=== PATIENT | female | born 1945 | race Caucasian/White ===

== ENCOUNTER → 2017-01-30 | Outpatient (CLI) | payer MEDICARE, OTHER ==
[2017-01-30 12:19] LABS: BASO # 0.1 10*3/uL (0.0-0.1); BASO % 0.8 % (0.0-1.0); EOS # 0.4 10*3/uL (0.0-0.4); EOS % 3.3 % (1.0-4.0); HEMATOCRIT 43.2 % (37.0-47.0); IG # 0.1 10*3/uL (0.0-0.1); LYMPH # 2.2 10*3/uL (1.3-4.4); LYMPH % 19.5 % (27.0-41.0); MEAN CELL VOLUME 96.4 fl (81.0-99.0); MEAN CORPUSCULAR HGB 31.3 pg (27.0-31.0); MEAN CORPUSCULAR HGB CONC 32.4 g/dl (33.0-37.0); MEAN PLATELET VOLUME 10.7 fl (9.6-12.3); MONO # 0.7 10*3/uL (0.1-1.0); MONO % 6.5 % (3.0-9.0); NEUT # 7.9 10*3/uL (2.3-7.9); NEUT % 69.5 % (47.0-73.0); PLATELET COUNT AUTOMATED 249 10*3/uL (130-400); RED BLOOD COUNT 4.48 10*6/uL (4.10-5.10); WHITE BLOOD COUNT 11.4 10*3/uL (4.8-10.8)
[2017-01-30 12:40] LABS: BILIRUBIN NEGATIVE (NEGATIVE); BLOOD NEGATIVE (NEGATIVE); CLARITY CLEAR (CLEAR); COLOR YELLOW (YELLOW); GLUCOSE NEGATIVE (NEGATIVE); KETONE NEGATIVE (NEGATIVE); LEUKO ESTERASE NEGATIVE (NEGATIVE); NITRITE NEGATIVE (NEGATIVE); PROTEIN NEGATIVE (NEGATIVE); SPECIFIC GRAVITY <= 1.005 (1.005-1.030); UROBILINOGEN 0.2 E.U./dl (0.2-1.0)
[2017-01-30 12:46] LABS: EPITHELIAL CELLS 0-2; URINE REFLEX COMMENT NO (NO)
[2017-01-30 12:50] LABS: URINE TP/CRE RATIO 0.3 (<0.21)
[2017-01-30 12:54] LABS: ALBUMIN 3.1 gm/dl (3.1-4.5); BILIRUBIN, TOTAL 0.5 mg/dl (0.2-1.0); MAGNESIUM 1.9 mg/dL (1.5-2.1); PHOSPHOROUS 2.7 mg/dL (2.5-4.9); POTASSIUM 4.7 mmol/L (3.5-5.1); TOTAL PROTEIN 7.5 gm/dL (6.4-8.2)
[2017-01-30 12:59] LABS: THYROID STIM HORMONE (HS) 2.53 uIU/ml (0.358-4.75)
[2017-01-30 13:22] LABS: FERRITIN 120.2 ng/mL (10.0-291.0); VITAMIN D, 25-HYDROXY 48.5 ng/mL (30-100)
[2017-01-30 14:58] LABS: HEMOGLOBIN A1c 6.7 % (4.8-5.6)
== END | disposition home or self-care (01) ==
LOC: LAB 11:44
PROVIDERS: Internal Medicine Nephrology
DX: N18.3 Chronic kidney disease, stage 3 (moderate) (principal); N25.81 Secondary hyperparathyroidism of renal origin; E55.9 Vitamin D deficiency, unspecified; R53.83 Other fatigue; R79.89 Other specified abnormal findings of blood chemistry; Z79.899 Other long term (current) drug therapy

== ENCOUNTER → 2017-06-07 | Outpatient (CLI) | payer MEDICARE, OTHER ==
[2017-06-07 09:26] LABS: BASO # 0.1 10*3/uL (0.0-0.1); BASO % 0.9 % (0.0-1.0); EOS # 0.4 10*3/uL (0.0-0.4); EOS % 2.9 % (1.0-4.0); HEMATOCRIT 42.8 % (37.0-47.0); HEMOGLOBIN 13.9 g/dl (12.0-16.0); LYMPH # 2.4 10*3/uL (1.3-4.4); LYMPH % 17.4 % (27.0-41.0); MEAN CORPUSCULAR HGB 31.2 pg (27.0-31.0); MEAN CORPUSCULAR HGB CONC 32.5 g/dl (33.0-37.0); MEAN PLATELET VOLUME 11.5 fl (9.6-12.3); MONO # 0.9 10*3/uL (0.1-1.0); MONO % 6.5 % (3.0-9.0); NEUT % 71.9 % (47.0-73.0); PLATELET COUNT AUTOMATED 243 10*3/uL (130-400); RED BLOOD COUNT 4.46 10*6/uL (4.10-5.10); RED CELL DISTRI WIDTH 14.7 % (0-14.5)
[2017-06-07 09:54] LABS: ALBUMIN 3.5 gm/dl (3.1-4.5); CREATININE 1.53 mg/dL (0.55-1.02); POTASSIUM 4.5 mmol/L (3.5-5.1); TOTAL PROTEIN 7.9 gm/dL (6.4-8.2)
[2017-06-07 09:59] LABS: THYROID STIM HORMONE (HS) 2.97 uIU/ml (0.358-4.75)
[2017-06-07 11:53] LABS: FERRITIN 72.6 ng/mL (10.0-291.0); VITAMIN D, 25-HYDROXY 37.3 ng/mL (30-100)
== END | disposition home or self-care (01) ==
LOC: LAB 07:28 → MAMMO 07:40
PROVIDERS: Family Medicine
DX: Z12.31 Encounter for screening mammogram for malignant neoplasm of breast (principal); R53.83 Other fatigue; R79.89 Other specified abnormal findings of blood chemistry; E55.9 Vitamin D deficiency, unspecified

== ENCOUNTER → 2017-07-31 | Outpatient (CLI) | payer MEDICARE, OTHER ==
[2017-07-31 15:19] LABS: BASO # 0.1 10*3/uL (0.0-0.1); BASO % 0.8 % (0.0-1.0); BILIRUBIN NEGATIVE (NEGATIVE); BLOOD NEGATIVE (NEGATIVE); CLARITY CLEAR (CLEAR); COLOR STRAW (YELLOW); EOS # 0.3 10*3/uL (0.0-0.4); EOS % 2.7 % (1.0-4.0); GLUCOSE NEGATIVE (NEGATIVE); HEMATOCRIT 42.7 % (37.0-47.0); HEMOGLOBIN 13.8 g/dl (12.0-16.0); KETONE NEGATIVE (NEGATIVE); LEUKO ESTERASE NEGATIVE (NEGATIVE); LYMPH # 2.5 10*3/uL (1.3-4.4); LYMPH % 20.4 % (27.0-41.0); MEAN CELL VOLUME 92.8 fl (81.0-99.0); MEAN CORPUSCULAR HGB CONC 32.3 g/dl (33.0-37.0); MEAN PLATELET VOLUME 10.8 fl (9.6-12.3); MONO # 0.9 10*3/uL (0.1-1.0); MONO % 7.2 % (3.0-9.0); NEUT # 8.3 10*3/uL (2.3-7.9); NEUT % 68.4 % (47.0-73.0); NITRITE NEGATIVE (NEGATIVE); PH 5.5 (5.0-9.0); PLATELET COUNT AUTOMATED 274 10*3/uL (130-400); RED CELL DISTRI WIDTH 14.8 % (0-14.5); SPECIFIC GRAVITY <= 1.005 (1.005-1.030); UROBILINOGEN 0.2 E.U./dl (0.2-1.0); WHITE BLOOD COUNT 12.1 10*3/uL (4.8-10.8)
[2017-07-31 15:28] LABS: URINE CREATININE RANDOM 20.7 mg/dL
[2017-07-31 15:33] LABS: BACTERIA TRACE; EPITHELIAL CELLS 15-20; WBC 0-2 wbc/hpf (0-5); YEAST TRACE
[2017-07-31 15:46] LABS: ALBUMIN 3.6 gm/dl (3.1-4.5); CREATININE 2.05 mg/dL (0.55-1.02); PHOSPHOROUS 2.1 mg/dL (2.5-4.9); POTASSIUM 4.1 mmol/L (3.5-5.1)
[2017-07-31 16:07] LABS: PTH INTACT 57.6 pg/mL (14.0-72.0); VITAMIN D, 25-HYDROXY 32.6 ng/mL (30-100)
== END | disposition home or self-care (01) ==
LOC: LAB 14:54
PROVIDERS: Internal Medicine Nephrology
DX: N18.3 Chronic kidney disease, stage 3 (moderate) (principal); N25.81 Secondary hyperparathyroidism of renal origin; E55.9 Vitamin D deficiency, unspecified

== ENCOUNTER 2017-12-29 12:41 | Inpatient (IN) | payer MEDICARE, OTHER ==
[~2017-12-29] VITALS: Ht 160 cm; Wt 117.2 kg
[2017-12-29] VITALS (10 sets, daily range): BP systolic 118–135; BP diastolic 47–118
--- NOTE | ~2017-12-29 | PR ---
[place], [place] PROGRESS NOTE NAME: YOSELIN RASHID [facility] #: [id number] UNIT #: [id number] ROOM: 511 DOCTOR: GEETHA GALDAMEZ MD,SHIVAM BIRTHDATE: [birth year] DOS: 01/04/2018 SUBJECTIVE: The patient has been noted comfortable at this time without any acute distress. The patient has not been noted symptoms of chest pain or cough. Shortness of breath has been improving progressively. The patient denies any symptoms of sputum expectoration. She has not been noted edema of the lower extremities. Denies symptoms of nausea, vomiting. She denies symptoms of headache, nausea, vomiting, diarrhea, hematemesis, melena, hematochezia, edema of the lower extremity. Remaining systems were reviewed. They were noted all negative. OBJECTIVE: VITAL SIGNS: For the patient which were recorded showed the temperature noted normal, respiratory rate of the patient recorded as 20, heart rate of 82. The blood pressure 154/76. HEENT: Examination shows head was atraumatic. Eyes, nonicterus. NECK: Supple. CARDIOVASCULAR: S1, S2 audible. LUNGS: Crackles are still noted in the right lower lung. Mild decreased breath sounds. There was no wheezing. ABDOMEN: Soft and obese. EXTREMITIES: Noted without any acute edema. VISIBLE SKIN: No lesions or rashes. MUSCULOSKELETAL: No deformities. CENTRAL NERVOUS SYSTEM: Intact. LABORATORY DATA: CBC today: WBC count was elevated at 20,000, hemoglobin 9.9, hematocrit were normal. The BMP this morning BUN 54, creatinine 1.89, carbon dioxide 34. The chest x-ray of the patient that was done this morning was reviewed and shows right lower lobe pneumonia was noted with consolidation. IMPRESSION: The patient with ongoing acute pneumonia, at this time, which has been treated with the antibiotics. The cultures of the bronchial washing noted negative. Previous isolation of Staphylococcus hominis, most likely bacteremia from skin contamination. PLAN OF MANAGEMENT: 1. Clinically, the patient has been showing progressive improvement and resolution of the current acute respiratory symptoms including pneumonia. The oxygen requirement noted 3 liter nasal cannula this morning. Wheezing has improved markedly. The patient noted the leukocytosis on the CBC that has been gradually resolving. Slow resolution of acute pneumonia. The patient currently treated with antibiotics. 2. Resolving acute exacerbation of chronic obstructive pulmonary disease. 3. Chronic obesity. 4. Continuation of the bronchodilator with oxygen supplementation and antibiotics. Monitor respiratory status closely. No additional changes in treatment will be necessary. Monitor chest x-ray closely. Other supportive therapy, plan of management. Potential discharge home in the next 24-48 hours, would be expected. [place], [place] PROGRESS NOTE NAME: YOSELIN RASHID UNIT #: [id number] ROOM: [facility] DOCTOR: SHIVAM KELLOGG MD BIRTHDATE: [birth year] SHIVAM INIGUEZ MD CM:PNKUMAR [id number] SHIVAM GALDAMEZ MD 03/06/18 0739 interface
--- NOTE | ~2017-12-29 | PR ---
[place], [place] PROGRESS NOTE NAME: YOSELIN RASHID [facility] #: [id number] UNIT #: [id number] ROOM: 511 DOCTOR: GEETHA GALDAMEZ MD,SHIVAM BIRTHDATE: [birth year] DOS: 01/02/2018 SUBJECTIVE: She has bronchoscopy done yesterday. The patient noted with significant reduction of the cough after that including shortness of breath. Denies symptoms of chest pain or hemoptysis. Wheezing has been improving gradually. There were symptoms of chest pain. Denies any abdominal pain, nausea, vomiting, dysuria. The remaining systems were reviewed. They were noted all negative. PHYSICAL EXAMINATION: VITAL SIGNS: Normal temperature, respiratory rate 16, heart rate 81, blood pressure 154/65, 111/58. Pulse oxygen saturation of the patient on 3 liters nasal cannula 98% saturation. HEENT: Examination shows head was atraumatic. Eyes nonicterus. NECK: Supple. CARDIOVASCULAR: S1, S2 audible. LUNGS: Absence of any wheezing on todays' examination, crackles in the right lower lung. ABDOMEN: Soft and obese. EXTREMITIES: Without acute edema. VISIBLE SKIN: No lesions or rashes. CENTRAL NERVOUS SYSTEM: Cranial nerves 2-12 intact. LABORATORY DATA: CBC today, WBC count 25.3, hemoglobin 10.6, platelet count were normal, 93% segmented neutrophil. Renal function panel: BUN 55, creatinine 2.01, and glucose 103. Sodium 133. The Gram stain of bronchial washings, few epithelial cells, moderate white blood cell, few budding yeast for the patient with preliminary noted moderate growth of yeast. The patient's culture final results pending. IMPRESSION: 1. The patient with acute pneumonia, bronchogram for this patient was noted small pleural fluid, status post bronchoscopy. Acute exacerbation of chronic obstructive pulmonary disease, severe cough. The patient noted better after the removal of the mucous impaction in major airways.2. 3. Bacteremia, possible contamination. 4. Chronic nicotine abuse. 5. Obesity. 6. Clinical suspicion of obstructive sleep apnea disorder. PLAN OF TREATMENT: Continue current dose of Solu-Medrol, which was decreased to 40 mg daily. Continuation of bronchodilators, oxygen supplementation, antibiotics. Chest x-ray of the patient that was done this morning was noted with partial improvement aeration of the lung. Leukocytosis still noted in the CBC, which will be monitored. Vancomycin could be discontinued. The leukocytosis has been gradually improving. Supportive therapy, plan of management, other care plan as previously. Usual care and other treatments. Titrate oxygen supplementation to maintain pulse oxygen 92% or greater. [place], [place] PROGRESS NOTE NAME: YOSELIN RASHID UNIT #: [id number] ROOM: [facility] DOCTOR: SHIVAM KELLOGG MD BIRTHDATE: [birth year] SHIVAM INIGUEZ MD CM:PNTRANS [id number] SHIVAM GALDAMEZ MD 03/06/18 0736 interface
--- NOTE | ~2017-12-29 | CON ---
[place], [place] REPORT OF CONSULTATION NAME: YOSELIN RASHID UNIT #: [id number] ROOM: 511 DOCTOR: GEETHA GALDAMEZ MDSHIVAM BIRTHDATE: [birth year] DOS: 12/30/2017 PULMONARY CONSULTATION, EVALUATION, AND MANAGEMENT CONSULTATION REQUESTED BY THE: Hospitalist services. REASON FOR CONSULTATION: For assessment of symptoms of shortness of breath and others. HISTORY OF PRESENT ILLNESS: This is a 72-year-old white female patient who has been admitted to the hospital under the care of the hospitalist services. The patient came into the hospital. The patient has been noted with significant increase of shortness of breath, occurred gradually in the past 3 days associated with coughing. The coughing has been noted severe and nonproductive and currently has some sputum expectoration described as purulent. She was also noted with wheezing along with symptoms, which not occuring worst and then occurring at rest. She denies any symptoms of chest pain, but complains of tightness in the chest. She denies symptoms of hemoptysis. PAST MEDICAL HISTORY: Known with: 1. Chronic tobacco use. 2. Coronary artery disease. 3. Chronic kidney disease, stage 3 to stage 4. 4. Type 2 diabetes mellitus. 5. Essential hypertension. 6. Hyperlipidemia. 7. Severe obesity. 8. Vitamin D deficiency. PAST SURGICAL HISTORY: 1. Bilateral carotid endarterectomy. 2. Coronary artery bypass grafting. 3. Cardiac catheterization. HOME MEDICATIONS: Listed as use of aspirin, Lipitor, vitamin D, clonidine, Plavix, fenofibrate, Lasix, metoprolol tartrate, and potassium chloride. DRUG ALLERGIES: As noted with no known drug allergies. SOCIAL HISTORY: She was , has 2 children. The patient has been noted using tobacco since teenager, pack of cigarettes per day, currently smoking a pack every 3 days. Denies history of alcohol use or illicit drug use. FAMILY HISTORY: The patient's father at age of [id number] from complication of lung cancer. Mother at age of [id number] from complication related to peripheral vascular disease. REVIEW OF SYSTEMS: CONSTITUTIONAL SYMPTOMS: Fatigue and tiredness noted without any chills, but not sure about the fever. [place], [place] REPORT OF CONSULTATION NAME: YOSELIN RASHID UNIT #: [id number] ROOM: 511 DOCTOR: GEETHA GALDAMEZ MD,SHIVAM BIRTHDATE: [birth year] EYES: Denies any burning, redness, or tenderness. EARS, NOSE, AND THROAT SYMPTOMS: No sore throat, hoarseness, otalgia, postnasal drainage, or epistaxis. CARDIOVASCULAR SYSTEM: Denies any angina pain, edema, or pain of the lower extremities. GASTROINTESTINAL SYMPTOMS: Denies dysphagia, nausea, vomiting, diarrhea, abdominal pain, hematemesis, melena, or hematochezia. SKIN: Denies abnormal lesions or rashes. CENTRAL NERVOUS SYSTEM: The patient was noted without any headache, diplopia, or syncopal episodes. The remaining systems were reviewed and they were noted all negative. PHYSICAL EXAMINATION: GENERAL: This is a 72-year-old white female patient, who has been currently noted resting. Height of the patient noted as 5 feet 3 inches, weight of 256 pounds, and on 4 liters nasal cannula BMI noted as 45. VITAL SIGNS: The vital signs of the patient otherwise recorded shows the temperature noted 102.7 degree Fahrenheit, normal temperature; respiratory rate ranges between 18-40, the heart rate of 94-108, and blood pressure 120/71-126/50. Pulse oxygen saturation noted on room air is 88%, on 3 liters nasal cannula is 96%, with a BiPAP is 96%-97% saturation, on 40% Optiflow mask is 93% and currently on 4 liter nasal cannula as 95%. HEENT: Examination shows head was atraumatic. Eyes nonicterus. NECK: Supple. Chronic obesity. CARDIOVASCULAR: S1, S2 is audible. LUNGS: Diffuse expiratory wheezing in the lungs was noted bilaterally. ABDOMEN: Soft and obese. It was nontender. EXTREMITIES: The patient is noted without any acute edema. Chronic obesity findings. CENTRAL NERVOUS SYSTEM: Cranial nerves 2-12 intact. MUSCULOSKELETAL: Without any deformity. VISIBLE SKIN: No lesions or rashes. LABORATORY DATA: The arterial blood gas of the patient on 3 liters, pH of 7.39, pCO2 of 39, and pO2 is 74. Lactic acid was noted 1.6. CBC yesterday on admission. WBC count 22.2, hemoglobin 11.1, hematocrit 33.1, and platelet count 234,000. CMP of the patient, BUN 51, creatinine 2.75, glucose 179, and sodium was 131. Arterial blood gas of the patient that was repeated again, pH of 7.35, pCO2 of 40, and pO2 of 75 on 35% of oxygen with the BiPAP. The troponin noted mildly elevated, the max troponin is 0.066. PT and PTT of the patient this morning was noted as normal. The CBC of the patient this morning, WBC count 22.5, hemoglobin 10.7, hematocrit 32.6, platelet count is 221,000, and 98% segmented neutrophils. CMP of the patient this morning, BUN 59, creatinine 3.01, glucose 159, sodium 130, and chloride of 97. Albumin 1.9. AST 161. Blood culture of the patient in the Emergency Room noted gram-positive cocci in cluster in the one order. The ultrasound of lower extremities was done this morning does not show evidence of pulmonary embolism. RADIOLOGY DATA: Review of the radiology data, chest x-ray of the patient that was done on 12/27/2017 shows area of acute infiltration and consolidation in the [place], [place] REPORT OF CONSULTATION NAME: YOSELIN RASHID UNIT #: [id number] ROOM: [facility] DOCTOR: GEETHA GALDAMEZ MD,[facility] BIRTHDATE: [birth year] right lower lobe. The CT scan of the chest that was done without contrast personally reviewed shows a very large infiltration, which was occupying in the right lower lobe with large air bronchogram was noted with associated very small pleural fluid. There was no evidence of possibility of cavitation cannot be completely excluded in the medial subsegment of the right lower lobe couple of areas. Mild mediastinal lymphadenopathy was noted appeared to be most likely non-pathological. IMPRESSION: 1. The patient who has been currently admitted to the hospital with systemic inflammatory response syndrome with acute hypoxic respiratory failure and acute extensive pneumonia in the right lobe, questionable necrosis and gram-positive cocci bacteremia. The differential diagnosis would be considered acute Staphylococcus aureus infection with possible consideration of the Staphylococcus aureus versus methicillin-resistant Staphylococcus aureus. 2. The patient with morbid obesity with clinical suspicion of obstructive sleep apnea disorder. 3. Acute and chronic kidney disease was related secondary to the intravascular volume depletion and/or acute tubular necrosis. 4. History of long-term tobacco use. 5. New onset of wheezing with consideration for the acute exacerbation of chronic obstructive pulmonary disease versus bronchial asthma as well. 6. Respiratory distress, which was noted yesterday related to the current acute infectious etiology. PLAN OF MANAGEMENT: The patient has been currently getting Solu-Medrol 60 mg q.8 hours that will be continued. Bronchodilator will be continued every 4 hours. The patient is already getting the vancomycin that would be continued for current infection. Beside that, the patient will be started on the intravenous Zosyn until all the culture results will become available. Order the sputum for Gram stain and culture. Obtain the urine for Legionella antigen as well. Monitoring the current findings of the current pneumonia, which appeared to be necrotizing as well with the followup of chest x-ray very closely. If necessary CT scan of the chest might be considered. If the patient not able to produce enough sputum, consider fiberoptic bronchoscopy with direct sampling of that area. Nicotine replacement patches to overcome nicotine withdrawal. Continue other supportive therapy, plan of management, and care plan. Additional treatment changes to be done for this patient with all other treatment therapy, plan of management, and care. Usual treatment. All other supportive plan of therapy as well. Previous treatment plan of changing to be continued as well. The pleural fluid is noted very small at this time, would not require any intervention. Monitor kidney function closely as well. Consider consultation, Nephrology services not already done so. Usual care. Supportive therapy, plan of management, and care plan. Thanks for allowing me to participate in the care of this patient. [place], [place] REPORT OF CONSULTATION NAME: YOSELIN RASHID UNIT #: [id number] ROOM: 511 DOCTOR: SHIVAM KELLOGG MD BIRTHDATE: [birth year] SHIVAM INIGUEZ MD CM:CONSTR:REPORT OF CONSULTATION 1358 03/06/18 0731 interface
--- NOTE | ~2017-12-29 | PROC NOTE ---
[place], [place] PROCEDURE NOTE [id number] #: [id number] ROOM: 511 DOCTOR: GEETHA GALDAMEZ MD,SHIVAM BIRTHDATE: [birth year] DOS: 01/01/2018 BRONCHOSCOPY PREOPERATIVE DIAGNOSES: The patient with acute large pneumonia involving the right upper lobe with excessive severe cough. POSTOPERATIVE DIAGNOSES: Infection of the mucus plug noted in endobronchial tree bilateral and finding of acute pneumonia noted in the right lower lobe. There were no endobronchial obstructions seen with any tumor. PROCEDURE DESCRIPTION: Informed consent obtained from the patient. The patient was brought to the OR and placed in supine position. Conscious sedation was administered by Anesthesia Department. After achieving appropriate sedation, airway introduced into the mouth. Bronchoscope advanced from the airway into laryngeal area. Epiglottis and vocal cords were seen. Bronchoscope was advanced to the vocal cords and tracheal lumen, which were moving symmetrically with the movements. Bronchoscope was further advanced to the trachea, which were noted with very thick mucoid secretion in the tracheal lumen with purulent secretion mixture. The secretions were suctioned out to the esther level. The patient noted with multiple thick plugs of the mucus in the endobronchial tree bilateral subsegments and the right lower lobe was noted with endobronchial secretion mixed with some purulent secretions with mucous impaction as well. There were no endobronchial obstructive lesions. All secretions suctioned out with the help of normal saline wash without any difficulty and sent for culture. The procedure was tolerated by the patient without any difficulty. Postoperative findings were discussed with the patient's family members. No immediate change in the treatment at this time will be necessary. SHIVAM INIGUEZ MD CM:PROCNOTE:PROCEDURE NOTE [id number] SHIVAM GALDAMEZ MD
--- NOTE | ~2017-12-29 | PROC NOTE ---
[place], [place] PROCEDURE NOTE NAME: YOSELIN RASHID UNIT #: [id number] ROOM: 511 DOCTOR: WALDEMAR MAGANA BIRTHDATE: [birth year] DOS: 01/02/2018 MODIFIED BARIUM SWALLOW LOCATION: [facility], room 511, bed 2. ORDERING PHYSICIAN: Dr. Ruff. RADIOLOGIST: Dr. Wong. BACKGROUND INFORMATION: The patient is a 72-year-old female who is seen for a modified barium swallow. This test was ordered due to suspected aspiration. The patient is diagnosed with right lower lobe pneumonia and respiratory failure. Further medical history includes history of CAD, CABG times 3, DM, CKD, hypertension, high cholesterol, and COPD. The patient currently receives a regular diet and thin liquids. For today's assessment, she was alert and able to follow all commands. She was receiving oxygen via nasal cannula with congested respirations noted. Oral peripheral examination revealed edentulous status. Lingual, labial, and buccal skills were within normal limits in terms of strength, range of motion, and coordination. The patient was able to volitionally cough and swallow. METHODS AND MATERIALS USED FOR THE EXAM: The patient was positioned in the lateral plane and the exam was viewed under fluoroscopy. The patient was presented with a variety of consistencies to assess swallowing skills including applesauce mixed with barium presented in half teaspoon amounts, barium-coated cookie and sandwich taken in bite size pieces and thin liquid barium taken by cup and straw. ORAL PHASE: Unremarkable. PHARYNGEAL PHASE: Unremarkable. ESOPHAGEAL PHASE: This phase of the swallow was not formally assessed during this exam. IMPRESSIONS AND RECOMMENDATIONS: Based upon assessment results, this 72-year-old patient exhibited oral and pharyngeal swallowing skills that are within normal limits with all consistencies given. Recommend a regular diet and thin liquids. No followup therapy is warranted. The patient and her nurse were educated on results and recommendations of the study and verbalized understanding. Thank you very much for this referral. Should you have any questions regarding this patient, please contact the speech pathologist at [phone]. [place], [place] PROCEDURE NOTE NAME: YOSELIN RASHID UNIT #: [id number] ROOM: 511 DOCTOR: WALDEMAR MAGANA BIRTHDATE: [birth year] WALDEMAR MAGANA CM:THERESA:PROCEDURE NOTE [id number] WALDEMAR MAGANA
--- NOTE | ~2017-12-29 | PR ---
[place], [place] PROGRESS NOTE NAME: YOSELIN RASHID [facility] #: [id number] UNIT #: [id number] ROOM: 511 DOCTOR: GEETHA GALDAMEZ MD,SHIVAM BIRTHDATE: [birth year] DOS: 01/01/2018 SUBJECTIVE: She has been noted same. The patient's nonproductive cough, remains unchanged. Planned for bronchoscopy today. Remains n.p.o. past midnight. Denies symptoms of nausea, vomiting, diarrhea, abdominal pain, hematemesis, melena or hematochezia. Denies symptoms of chest pain or hemoptysis. Denies symptoms of pain of the lower extremities. Remaining systems were reviewed, they were noted all negative. OBJECTIVE: VITAL SIGNS: This morning noted normal temperature, respiratory rate 15, heart rate 88, and blood pressure 178/82. This morning of assessment, pulse oxygen on 3 liters nasal cannula noted 94% saturation. GENERAL: The patient lying in the bed. HEENT: Head was atraumatic. Eyes nonicterus. NECK: Supple. CARDIOVASCULAR: S1, S2 audible. LUNGS: The patient noted without any wheezing or crackles. The breath sounds are noted to still diminish in the right lower lung. ABDOMEN: Soft and obese. EXTREMITIES: The patient noted without acute edema. SKIN: No lesions or rashes. CENTRAL NERVOUS SYSTEM: The patient's cranial nerves 2-12 intact. No focal deficit. LABORATORY DATA: CBC today; WBC count 27.5, still elevated; hemoglobin 10.5, hematocrit 38.0, platelet count 188,000. CMP this morning, BUN 62, creatinine 2.68, glucose 152. Sodium 133. AST was 186, which was still elevated. The patient also had a blood culture 1/2 sets, the patient noted Staph hominis on admission. IMPRESSION: 1. The patient noted with current acute right pneumonia involving the right lower lobe consolidation air bronchogram. A small pleural fluid secondary to acute bacterial pneumonia. 2. Nonproductive cough as well. 3. Leukocytosis with partial improvement. 4. Acute exacerbation of chronic obstructive pulmonary disease. 5. History of suspected obstructive sleep apnea. 6. History of nicotine abuse. 7. The patient with Staphylococcus hominis bacteremia. PLAN OF MANAGEMENT: Proceed with the bronchoscopy. The dose of Solu-Medrol will be further decreased to 40 mg daily dose today. Continue monitoring CBC. After the bronchoscopy, any further changes in the treatment necessary will be ordered accordingly. Otherwise, continue current antibiotics. Blood culture noted Staphylococcus hominis bacteremia for this patient, may be a contamination rather than true infection causing the current pneumonia. In the meantime, continue other supportive therapy plan of management. Usual treatment with additional changes in the treatment will be recommended based on progression of [place], [place] PROGRESS NOTE NAME: YOSELIN RASHID UNIT #: [id number] ROOM: [facility] DOCTOR: GEETHA GALDAMEZ MD,SHIVAM BIRTHDATE: [birth year] illness. Monitoring the pleural fluid as well with followup chest x-ray, which will be done tomorrow. The patient with Staphylococcus hominis bacteremia, may be a contaminant to be considered. SHIVAM INIGUEZ MD CM:PNTRANS [id number] SHIVAM GALDAMEZ MD 01/02/18 1010 interface
--- NOTE | ~2017-12-29 | PR ---
[place], [place] PROGRESS NOTE [id number] #: [id number] ROOM: 511 DOCTOR: GREGORIO DELACRUZ MD BIRTHDATE: [birth year] DOS: 01/01/2018 CARDIOLOGY PROGRESS NOTE SUBJECTIVE: The patient was seen at her bedside today 01/01/2018 for followup of a mildly elevated troponin. She is a 72-year-old woman who has a history of diabetes, hypertension and coronary artery disease. She is status post bypass surgery in [address] Dow at [facility]. Her risk factors include diabetes, hypertension, hyperlipidemia and cigarette abuse. She presented to the hospital on this occasion with pneumonia. She was felt to be septic on admission. Blood culture on admission was positive for Staphylococcus hominis. Subsequent blood cultures have been unremarkable. The patient's troponin levels have been minimally elevated at 0.09, 0.093, 0.066. She has not had any chest pain. PHYSICAL EXAMINATION: VITAL SIGNS: Her pulse is 96 and regular, blood pressure is 155/60. She is afebrile. NECK: Supple. She has no jugular distention. Carotids are full. LUNGS: Respirations are unlabored. Her chest has decreased breath sounds with crackles at the right base. There is no presacral edema or chest wall tenderness. HEART: Has a regular rhythm with a fourth heart sound, but no third heart sound. ABDOMEN: Benign. EXTREMITIES: Showed trace edema. From a cardiac standpoint, she seems to be doing well and does not show any signs of an acute coronary syndrome. There is no other cardiac workup planned at this time. We will remain available to see her as needed. After discharge, she should make sure that she has followup arrangements with her primary ciaio lumite injector. We will sign off at this point, but remain available as needed and we thank the hospitalist physicians for asking our advice regarding her care. [place], [place] PROGRESS NOTE NAME: YOSELIN RASHID UNIT #: [id number] ROOM: 511 DOCTOR: GREGORIO DELACRUZ MD BIRTHDATE: [birth year] GREGORIO DELACRUZ MD CM:PNTRANS [id number] GREGORIO DELACRUZ MD 01/02/18 1824 interface
--- NOTE | ~2017-12-29 | PR ---
[place], [place] PROGRESS NOTE NAME: YOSELIN RASHID [facility] #: [id number] UNIT #: [id number] ROOM: 511 DOCTOR: GEETHA GALDAMEZ MD,SHIVAM BIRTHDATE: [birth year] DOS: 12/31/2017 PULMONARY PROGRESS NOTE SUBJECTIVE: She is seen and examined on 12/31/2017. She has reported persistent cough which has been currently noted, moderate to severe, and remains nonproductive. Denies symptoms of chest pain or any hemoptysis. The patient denies symptoms of active wheezing. Denies symptoms of nausea, vomiting, diarrhea, abdominal pain, hematemesis, or melena. Denies any pain of the lower extremities. She has not been noted any symptoms of headache or diplopia. Remaining systems were reviewed, they were noted all negative. OBJECTIVE: VITAL SIGNS: Which were recorded showed normal temperature 99-degree Fahrenheit, respiratory rate 19, heart rate of 101-85, blood pressure 120/56-146/76. Pulse oxygen saturation noted on 3 liters nasal cannula 92% saturation. HEENT: Examination shows head was atraumatic. Eyes nonicterus. NECK: Supple. CARDIOVASCULAR: S1, S2 is audible. LUNGS: Noted with crackles. Noted decreased breath sounds in the right lower lung plus scattered wheezing. ABDOMEN: Soft, nontender. Bowel sounds present. EXTREMITIES: Noted without any acute edema. MUSCULOSKELETAL: Noted without any acute deformities. VISIBLE SKIN: No lesions or rashes. CENTRAL NERVOUS SYSTEM: No focal deficit. LABORATORY DATA: CMP today: BUN 65, creatinine 2.76, glucose 159, sodium 133. AST 247. CBC: WBC count was noted 31.2, hemoglobin 10.6, hematocrit 31.9, platelet count of 270,000, 94% segmented neutrophils. Blood culture, 1 set, no bacterial growth; the second with Gram-positive cocci in cluster at this time, pending identification and sensitivity, taken in the Emergency Room on admission on 12/29/2017. RADIOLOGY: Chest x-ray was also obtained, PA lateral view, that was ordered for assessment of pneumonia, persistent pneumonia noted involving the right lower lobe. IMPRESSION: 1. The patient with signs of consolidation involving almost all of the right lower lobe at this time with associated very small pleural fluid, without changes. 2. Nonproductive cough. 3. Leukocytosis, mostly the effect of the infection and also contributed by the steroids. 4. Acute exacerbation of chronic obstructive pulmonary disease. 5. History of nicotine dependency. 6. Suspected obstructive sleep apnea disorder. [place], [place] PROGRESS NOTE NAME: YOSELIN RASHID UNIT #: [id number] ROOM: [facility] DOCTOR: GEETHA GALDAMEZ MD,SHIVAM BIRTHDATE: [birth year] PLAN OF MANAGEMENT: Continuation of the IV Solu-Medrol and vancomycin. Monitoring the culture results. Fiberoptic bronchoscopy is planned to be done tomorrow morning. For reduction of wheezing, the dose of steroids will be decreased to 40 mg b.i.d. dosing. Continue bronchodilators. She will also be assessed with bronchoscopy, to be done tomorrow morning. Risks and benefits of the procedure were discussed. Other supportive therapy, plan of management. Monitoring pleural fluid, which still remains small for the patient at this time, would not require any intervention. SHIVAM INIGUEZ MD CM:PNTRANS [id number] SHIVAM GALDAMEZ MD 12/31/17 1349 interface
--- NOTE | ~2017-12-29 | PR ---
[place], [place] PROGRESS NOTE NAME: YOSELIN RASHID UNIT #: [id number] ROOM: 511 DOCTOR: SHIVAM KELLOGG MD BIRTHDATE: [birth year] DOS: 01/03/2018 SUBJECTIVE: The patient was noted without any acute ongoing new complaints at this time. Shortness of breath, coughing and other symptoms have been gradually subsiding. There were no symptoms of chest pain or any hemoptysis. OBJECTIVE: VITAL SIGNS: The patient showed normal temperature, respiratory rate 20, heart rate 82, blood pressure 150/69, pulse ox saturation on 3 liters nasal cannula 93% saturation. HEENT: Head was atraumatic. Eyes, nonicterus. NECK: Supple. CARDIOVASCULAR: S1, S2 audible. LUNGS: Still noted basilar crackle, greater on the right than the left side. ABDOMEN: Soft and obese. EXTREMITIES: No edema. LABORATORY DATA: CBC, WBC count 21.6, hemoglobin 9.7, platelet count was normal. BMP this morning, BUN 55, creatinine 2.12. Culture of the bronchial washing noted with final growth of moderate yeast. IMPRESSION: 1. Gradual reduction of the leukocytosis noted with acute exacerbation of chronic obstructive pulmonary disease. 2. Acute pneumonia, which is noted with clinical improvement. 3. Chronic obesity. 4. Suspicion of obstructive sleep apnea disorder. PLAN OF MANAGEMENT: Continuation of the bronchodilators, oxygen supplementation. Repeat chest x-ray in the morning to reassess the progression of the current pulmonary infiltration. Leukocytosis has been gradually improving. The Solu-Medrol dose has been already decreased to 40 mg daily from yesterday; it will be kept the same. [place], [place] PROGRESS NOTE NAME: YOSELIN RASHID UNIT #: [id number] ROOM: 511 DOCTOR: SHIVAM KELLOGG MD BIRTHDATE: [birth year] SHIVAM INIGUEZ MD CM:PNTRANS [id number] SHIVAM GALDAMEZ MD 03/06/18 0739 interface
[2017-12-29 14:17] LABS: ABG BASE EXCESS -0.7 mmol/L (-2.0-2.0); ABG HCO3 23.4 mmol/l (22-26); ABG O2 SATURATION 94.6 % (95-97); ARTERIAL BLOOD GAS PCO2 39.4 mmHg (35-45); ARTERIAL BLOOD GAS PH 7.393 (7.35-7.45); ARTERIAL BLOOD GAS PO2 74.5 mmHg (80-90)
[2017-12-29 14:42] LABS: HEMATOCRIT 33.1 % (37.0-47.0); HEMOGLOBIN 11.1 g/dl (12.0-16.0); MEAN CELL VOLUME 90.2 fl (81.0-99.0); MEAN CORPUSCULAR HGB 30.2 pg (27.0-31.0); MEAN CORPUSCULAR HGB CONC 33.5 g/dl (33.0-37.0); MEAN PLATELET VOLUME 11.1 fl (9.6-12.3); PLATELET COUNT AUTOMATED 234 10*3/uL (130-400); RED BLOOD COUNT 3.67 10*6/uL (4.10-5.10); RED CELL DISTRI WIDTH 15.2 % (0-14.5); WHITE BLOOD COUNT 22.2 10*3/uL (4.8-10.8)
[2017-12-29 15:01] LABS: ALBUMIN 2.2 gm/dl (3.1-4.5); CREATININE 2.75 mg/dL (0.55-1.02); POTASSIUM 4.3 mmol/L (3.5-5.1); TOTAL PROTEIN 7.3 gm/dL (6.4-8.2)
[2017-12-29 15:02] LABS: TOTAL CELLS COUNTED 100 #CELLS
[2017-12-29 15:03] LABS: PLATELET SUFFICIENCY NORMAL (NORMAL); ROULEAUX SLIGHT
[2017-12-29] MEDS ORDERED: 'CLONIDINE0.1 MG PO (15:16)
[2017-12-29] MEDS ORDERED: METOPROLOL TART50 M1 PO (15:16)
[2017-12-29] MEDS ORDERED: KLOR-CON M1010 ME1 PO (15:17)
[2017-12-29] MEDS ORDERED: FUROSEMIDE20 M1 PO (15:17)
[2017-12-29] MEDS ORDERED: CLOPIDOGREL75 MG PO (15:18)
[2017-12-29] MEDS ORDERED: ASPIRIN ADULT L81 M1 PO (15:18)
[2017-12-29] MEDS ORDERED: VITAMIN D34000 UNIT PO (15:18)
[2017-12-29] MEDS ORDERED: ATORVASTATIN CA80 M1 PO (15:18)
[2017-12-29] MEDS ORDERED: FENOFIBRATE160 MG PO (15:19)
[2017-12-29 18:15] LABS: ABG BASE EXCESS -0.8 mmol/L (-2.0-2.0); ABG HCO3 22.9 mmol/l (22-26); ABG O2 SATURATION 93.1 % (95-97); ARTERIAL BLOOD GAS PCO2 40.8 mmHg (35-45); ARTERIAL BLOOD GAS PH 7.38 (7.35-7.45); ARTERIAL BLOOD GAS PO2 75.2 mmHg (80-90)
[2017-12-30] VITALS: BP 126/59
[2017-12-30 06:24] LABS: HEMATOCRIT 32.6 % (37.0-47.0); HEMOGLOBIN 10.7 g/dl (12.0-16.0); MEAN CELL VOLUME 91.6 fl (81.0-99.0); MEAN CORPUSCULAR HGB 30.1 pg (27.0-31.0); MEAN CORPUSCULAR HGB CONC 32.8 g/dl (33.0-37.0); MEAN PLATELET VOLUME 11.1 fl (9.6-12.3); PLATELET COUNT AUTOMATED 221 10*3/uL (130-400); RED BLOOD COUNT 3.56 10*6/uL (4.10-5.10); RED CELL DISTRI WIDTH 15.2 % (0-14.5); WHITE BLOOD COUNT 22.5 10*3/uL (4.8-10.8)
[2017-12-30 06:54] LABS: ACT PARTIAL THROMBO TIME 31.1 SECONDS (20.8-31.5); INTERNATIONAL NORM RATIO 1.1 (2.0-3.5)
[2017-12-30 07:11] LABS: ALBUMIN 1.9 gm/dl (3.1-4.5); ALKALINE PHOSPHATASE 66 U/L (45-117); BUN 59 mg/dl (7-24); CHLORIDE 97 mmol/L (98-107); CREATININE 3.01 mg/dL (0.55-1.02); FREE T4 1.26 ng/dl (0.76-1.46); HDL CHOLESTEROL 8 mg/dl (40-60); PHOSPHOROUS 4.1 mg/dL (2.5-4.9); SGOT/AST 161 IU/L (3-35); SGPT/ALT 43 U/L (12-78); SODIUM 130 mmol/L (136-145); TOTAL PROTEIN 6.7 gm/dL (6.4-8.2); TRIGLYCERIDES 116 mg/dl (<150); VLDL CHOLESTEROL 23 mg/dL (6-40)
[2017-12-30 07:16] LABS: THYROID STIM HORMONE (HS) 0.479 uIU/ml (0.358-4.75)
[2017-12-30 07:19] LABS: BURR CELLS FEW; PLATELET SUFFICIENCY NORMAL (NORMAL); ROULEAUX MODERATE; TOTAL CELLS COUNTED 100 #CELLS
[2017-12-30 07:34] LABS: CHOLESTEROL < 50 mg/dL (<200); LDL CHOLESTEROL 19 mg/dL (9-159)
[2017-12-30 07:42] LABS: VITAMIN D, 25-HYDROXY 41.4 ng/mL (30-100)
[2017-12-30 08:00] VITALS: BP 128/68
[2017-12-30 12:00] VITALS: BP 138/54
[2017-12-30 16:00] VITALS: BP 134/63
[2017-12-30 20:00] VITALS: BP 154/87
[2017-12-31] VITALS: BP 120/56
[2017-12-31 06:11] LABS: HEMATOCRIT 31.9 % (37.0-47.0); HEMOGLOBIN 10.6 g/dl (12.0-16.0); MEAN CELL VOLUME 89.9 fl (81.0-99.0); MEAN CORPUSCULAR HGB 29.9 pg (27.0-31.0); MEAN CORPUSCULAR HGB CONC 33.2 g/dl (33.0-37.0); MEAN PLATELET VOLUME 11.9 fl (9.6-12.3); PLATELET COUNT AUTOMATED 270 10*3/uL (130-400); RED BLOOD COUNT 3.55 10*6/uL (4.10-5.10); RED CELL DISTRI WIDTH 15.3 % (0-14.5); WHITE BLOOD COUNT 31.2 10*3/uL (4.8-10.8)
[2017-12-31 06:36] LABS: CREATININE 2.76 mg/dL (0.55-1.02); TOTAL PROTEIN 6.8 gm/dL (6.4-8.2)
[2017-12-31 06:52] LABS: BURR CELLS FEW; PLATELET SUFFICIENCY NORMAL (NORMAL); ROULEAUX MODERATE; TOTAL CELLS COUNTED 100 #CELLS
[2017-12-31 08:00] VITALS: BP 146/76
[2017-12-31 12:00] VITALS: BP 124/43
[2017-12-31 16:00] VITALS: BP 144/73
[2017-12-31 20:00] VITALS: BP 145/83
[2018-01-01] VITALS (9 sets, daily range): BP systolic 138–178; BP diastolic 56–89
[2018-01-01 07:39] LABS: HEMATOCRIT 30.9 % (37.0-47.0); HEMOGLOBIN 10.5 g/dl (12.0-16.0); MEAN CORPUSCULAR HGB 29.9 pg (27.0-31.0); MEAN PLATELET VOLUME 11.5 fl (9.6-12.3); PLATELET COUNT AUTOMATED 288 10*3/uL (130-400); RED BLOOD COUNT 3.51 10*6/uL (4.10-5.10); RED CELL DISTRI WIDTH 15.1 % (0-14.5); WHITE BLOOD COUNT 27.5 10*3/uL (4.8-10.8)
[2018-01-01 08:01] LABS: ALBUMIN 1.9 gm/dl (3.1-4.5); CREATININE 2.68 mg/dL (0.55-1.02); POTASSIUM 4.5 mmol/L (3.5-5.1); TOTAL PROTEIN 7.4 gm/dL (6.4-8.2)
[2018-01-01 08:12] LABS: TOTAL CELLS COUNTED 100 #CELLS
[2018-01-01 08:13] LABS: DOHLE BODIES FEW; PLATELET SUFFICIENCY NORMAL (NORMAL); TOXIC GRANULATION SLIGHT
[2018-01-02] VITALS: BP 111/58
[2018-01-02 06:45] LABS: HEMATOCRIT 32.1 % (37.0-47.0); HEMOGLOBIN 10.6 g/dl (12.0-16.0); MEAN CELL VOLUME 89.7 fl (81.0-99.0); MEAN CORPUSCULAR HGB 29.6 pg (27.0-31.0); MEAN PLATELET VOLUME 10.9 fl (9.6-12.3); PLATELET COUNT AUTOMATED 337 10*3/uL (130-400); RED BLOOD COUNT 3.58 10*6/uL (4.10-5.10); RED CELL DISTRI WIDTH 15.4 % (0-14.5); WHITE BLOOD COUNT 25.3 10*3/uL (4.8-10.8)
[2018-01-02 07:07] LABS: ALBUMIN 1.8 gm/dl (3.1-4.5); CREATININE 2.01 mg/dL (0.55-1.02); POTASSIUM 4.1 mmol/L (3.5-5.1)
[2018-01-02 07:36] LABS: PLATELET SUFFICIENCY NORMAL (NORMAL); POLYCHROMASIA SLIGHT; TOTAL CELLS COUNTED 100 #CELLS
[2018-01-02 08:00] VITALS: BP 154/65
[2018-01-02 12:00] VITALS: BP 154/88
[2018-01-02 16:00] VITALS: BP 149/68
[2018-01-02 17:04] LABS: ACID FAST SPEC PROCESSING Concentration (.)
[2018-01-02 19:58] VITALS: BP 151/69
[2018-01-03] VITALS: BP 151/68
[2018-01-03 06:37] LABS: HEMATOCRIT 29.8 % (37.0-47.0); HEMOGLOBIN 9.7 g/dl (12.0-16.0); MEAN CELL VOLUME 89.8 fl (81.0-99.0); MEAN CORPUSCULAR HGB 29.2 pg (27.0-31.0); MEAN CORPUSCULAR HGB CONC 32.6 g/dl (33.0-37.0); MEAN PLATELET VOLUME 10.6 fl (9.6-12.3); PLATELET COUNT AUTOMATED 337 10*3/uL (130-400); RED BLOOD COUNT 3.32 10*6/uL (4.10-5.10); RED CELL DISTRI WIDTH 15.8 % (0-14.5); WHITE BLOOD COUNT 21.6 10*3/uL (4.8-10.8)
[2018-01-03 06:55] LABS: CREATININE 2.12 mg/dL (0.55-1.02); POTASSIUM 3.9 mmol/L (3.5-5.1)
[2018-01-03 06:59] LABS: PLATELET SUFFICIENCY NORMAL (NORMAL); POLYCHROMASIA SLIGHT; TOTAL CELLS COUNTED 100 #CELLS
[2018-01-03 08:00] VITALS: BP 159/75
[2018-01-03 12:00] VITALS: BP 150/69
[2018-01-03 16:00] VITALS: BP 150/62
[2018-01-03 20:00] VITALS: BP 137/59
[2018-01-04] VITALS: BP 111/42
[2018-01-04 07:18] LABS: HEMATOCRIT 29.9 % (37.0-47.0); HEMOGLOBIN 9.9 g/dl (12.0-16.0); MEAN CELL VOLUME 90.1 fl (81.0-99.0); MEAN CORPUSCULAR HGB 29.8 pg (27.0-31.0); MEAN CORPUSCULAR HGB CONC 33.1 g/dl (33.0-37.0); MEAN PLATELET VOLUME 10.7 fl (9.6-12.3); PLATELET COUNT AUTOMATED 394 10*3/uL (130-400); RED BLOOD COUNT 3.32 10*6/uL (4.10-5.10); RED CELL DISTRI WIDTH 15.9 % (0-14.5)
[2018-01-04 07:36] LABS: PLATELET SUFFICIENCY NORMAL (NORMAL); POLYCHROMASIA SLIGHT; POTASSIUM 3.8 mmol/L (3.5-5.1); TARGET CELLS FEW; TOTAL CELLS COUNTED 100 #CELLS
[2018-01-04 07:45] LABS: CREATININE 1.89 mg/dL (0.55-1.02); PHOSPHOROUS 2.7 mg/dL (2.5-4.9)
[2018-01-04 08:00] VITALS: BP 154/76
[2018-01-04 12:00] VITALS: BP 142/84
[2018-01-04] MEDS ORDERED: PREDNISONE10 MG PO (12:42)
[2018-01-04] MEDS ORDERED: LEVAQUIN500 M2 PO (12:42)
[2018-01-04] MEDS ORDERED: ATORVASTATIN CA20 M1 PO (12:42)
[2018-01-04] MEDS ORDERED: 'CLONIDINE0.1 MG PO (12:42)
[2018-01-04] MEDS ORDERED: OXYGEN NAS (12:49)
[2018-02-06 13:03] LABS: ORGANISM ID, MOLD Final report (.); RESULT 1 Final Identification (.)
[2018-02-15 12:05] LABS: ACID FAST CULTURE Negative (.)
== END 2018-01-04 12:58 | disposition home or self-care (01) | DRG 871 ==
LOC: ED 12:41 → 5E 14:48 → EDHOLD 14:48 → 5E 14:56
PROVIDERS: Emergency Medicine; Internal Medicine; Internal Medicine Critical Care Medicine; Internal Medicine Hospice and Palliative Medicine
PROC: 5A09357 Assistance with Respiratory Ventilation, Less than 24 Consecutive Hours, Continuous Positive Airway Pressure (ICD-10-PCS; principal; 2017-12-29)
PROC: 0BC78ZZ Extirpation of Matter from Left Main Bronchus, Via Natural or Artificial Opening Endoscopic (ICD-10-PCS; 2018-01-01)
PROC: 0BC18ZZ Extirpation of Matter from Trachea, Via Natural or Artificial Opening Endoscopic (ICD-10-PCS; 2018-01-01)
PROC: 0BC38ZZ Extirpation of Matter from Right Main Bronchus, Via Natural or Artificial Opening Endoscopic (ICD-10-PCS; 2018-01-01)
PROC: 0BC98ZZ Extirpation of Matter from Lingula Bronchus, Via Natural or Artificial Opening Endoscopic (ICD-10-PCS; 2018-01-01)
PROC: 0BC48ZZ Extirpation of Matter from Right Upper Lobe Bronchus, Via Natural or Artificial Opening Endoscopic (ICD-10-PCS; 2018-01-01)
PROC: 0BC68ZZ Extirpation of Matter from Right Lower Lobe Bronchus, Via Natural or Artificial Opening Endoscopic (ICD-10-PCS; 2018-01-01)
PROC: 0BC58ZZ Extirpation of Matter from Right Middle Lobe Bronchus, Via Natural or Artificial Opening Endoscopic (ICD-10-PCS; 2018-01-01)
PROC: 0BC88ZZ Extirpation of Matter from Left Upper Lobe Bronchus, Via Natural or Artificial Opening Endoscopic (ICD-10-PCS; 2018-01-01)
PROC: 0BCB8ZZ Extirpation of Matter from Left Lower Lobe Bronchus, Via Natural or Artificial Opening Endoscopic (ICD-10-PCS; 2018-01-01)
PROC: BD1BYZZ Fluoroscopy of Mouth/Oropharynx using Other Contrast (ICD-10-PCS; 2018-01-02)
DX: A41.1 Sepsis due to other specified staphylococcus (principal); N17.0 Acute kidney failure with tubular necrosis; J96.01 Acute respiratory failure with hypoxia; T17.590A Other foreign object in bronchus causing asphyxiation, initial encounter; J18.1 Lobar pneumonia, unspecified organism; I13.0 Hypertensive heart and chronic kidney disease with heart failure and stage 1 through stage 4 chronic kidney disease, or unspecified chronic kidney disease; E11.22 Type 2 diabetes mellitus with diabetic chronic kidney disease; I50.32 Chronic diastolic (congestive) heart failure; E66.01 Morbid (severe) obesity due to excess calories; I07.1 Rheumatic tricuspid insufficiency; J44.0 Chronic obstructive pulmonary disease with (acute) lower respiratory infection; J45.901 Unspecified asthma with (acute) exacerbation; N18.4 Chronic kidney disease, stage 4 (severe); E87.1 Hypo-osmolality and hyponatremia; J44.1 Chronic obstructive pulmonary disease with (acute) exacerbation; Z68.42 Body mass index [BMI] 45.0-49.9, adult; X58.XXXA Exposure to other specified factors, initial encounter; E87.8 Other disorders of electrolyte and fluid balance, not elsewhere classified; E11.65 Type 2 diabetes mellitus with hyperglycemia; E78.5 Hyperlipidemia, unspecified; R74.0 Nonspecific elevation of levels of transaminase and lactic acid dehydrogenase [LDH]; E55.9 Vitamin D deficiency, unspecified; D64.9 Anemia, unspecified; E78.00 Pure hypercholesterolemia, unspecified; R65.20 Severe sepsis without septic shock; I25.10 Atherosclerotic heart disease of native coronary artery without angina pectoris; F17.210 Nicotine dependence, cigarettes, uncomplicated; Z79.82 Long term (current) use of aspirin; Z99.81 Dependence on supplemental oxygen; Z79.899 Other long term (current) drug therapy; Z95.1 Presence of aortocoronary bypass graft; Z80.1 Family history of malignant neoplasm of trachea, bronchus and lung; Z84.89 Family history of other specified conditions; Z71.6 Tobacco abuse counseling; Y93.89 Activity, other specified; Y92.89 Other specified places as the place of occurrence of the external cause; Y99.8 Other external cause status

== ENCOUNTER → 2018-03-29 | Outpatient (CLI) | payer MEDICARE, OTHER ==
[~2018-03-29] MED LIST: 'CLONIDINE0.1 MG PO; ASPIRIN ADULT L81 M1 PO; ATORVASTATIN CA20 M1 PO; ATORVASTATIN CA80 M1 PO; CLOPIDOGREL75 MG PO; FENOFIBRATE160 MG PO; FUROSEMIDE20 M1 PO; KLOR-CON M1010 ME1 PO; LEVAQUIN500 M2 PO; METOPROLOL TART50 M1 PO; OXYGEN NAS; PREDNISONE10 MG PO; VITAMIN D34000 UNIT PO
[2018-03-29 14:30] LABS: BASO # 0.1 10*3/uL (0.0-0.1); BASO % 0.6 % (0.0-1.0); EOS # 0.3 10*3/uL (0.0-0.4); EOS % 2.3 % (1.0-4.0); HEMATOCRIT 41.4 % (37.0-47.0); HEMOGLOBIN 13.3 g/dl (12.0-16.0); LYMPH # 1.5 10*3/uL (1.3-4.4); LYMPH % 12.1 % (27.0-41.0); MEAN CELL VOLUME 95.8 fl (81.0-99.0); MEAN CORPUSCULAR HGB 30.8 pg (27.0-31.0); MEAN CORPUSCULAR HGB CONC 32.1 g/dl (33.0-37.0); MONO # 0.8 10*3/uL (0.1-1.0); NEUT # 9.8 10*3/uL (2.3-7.9); NEUT % 78.6 % (47.0-73.0); PLATELET COUNT AUTOMATED 300 10*3/uL (130-400); RED BLOOD COUNT 4.32 10*6/uL (4.10-5.10); RED CELL DISTRI WIDTH 14.1 % (0-14.5); WHITE BLOOD COUNT 12.5 10*3/uL (4.8-10.8)
[2018-03-29 14:40] LABS: BILIRUBIN NEGATIVE (NEGATIVE); BLOOD NEGATIVE (NEGATIVE); CLARITY CLEAR (CLEAR); COLOR YELLOW (YELLOW); GLUCOSE NEGATIVE (NEGATIVE); KETONE NEGATIVE (NEGATIVE); LEUKO ESTERASE NEGATIVE (NEGATIVE); NITRITE NEGATIVE (NEGATIVE); SPECIFIC GRAVITY <= 1.005 (1.005-1.030); UROBILINOGEN 0.2 E.U./dl (0.2-1.0)
[2018-03-29 14:51] LABS: URINE CREATININE RANDOM 20.3 mg/dL
[2018-03-29 15:03] LABS: ALBUMIN 3.3 gm/dl (3.1-4.5); CREATININE 1.93 mg/dL (0.55-1.02); PHOSPHOROUS 2.9 mg/dL (2.5-4.9); POTASSIUM 4.3 mmol/L (3.5-5.1)
[2018-03-29 15:10] LABS: BACTERIA 1+; WBC 0-2 wbc/hpf (0-5)
[2018-03-29 16:42] LABS: VITAMIN D, 25-HYDROXY 46.3 ng/mL (30-100)
[2018-03-29 16:43] LABS: PTH INTACT 46.2 pg/mL (18.5-88.0)
== END | disposition home or self-care (01) ==
LOC: LAB 13:37
PROVIDERS: Internal Medicine Nephrology
DX: N18.3 Chronic kidney disease, stage 3 (moderate) (principal); E55.9 Vitamin D deficiency, unspecified; N25.81 Secondary hyperparathyroidism of renal origin

== ENCOUNTER → 2018-08-31 | Outpatient (CLI) | payer MEDICARE, OTHER ==
[2018-08-31 16:01] LABS: BILIRUBIN NEGATIVE (NEGATIVE); BLOOD NEGATIVE (NEGATIVE); CLARITY CLEAR (CLEAR); COLOR YELLOW (YELLOW); GLUCOSE NEGATIVE (NEGATIVE); KETONE NEGATIVE (NEGATIVE); LEUKO ESTERASE NEGATIVE (NEGATIVE); NITRITE NEGATIVE (NEGATIVE); PH 5.5 (5.0-9.0); UROBILINOGEN 0.2 E.U./dl (0.2-1.0)
[2018-08-31 16:09] LABS: BASO # 0.1 10*3/uL (0.0-0.1); EOS # 0.4 10*3/uL (0.0-0.4); EOS % 3.6 % (1.0-4.0); HEMATOCRIT 43.9 % (37.0-47.0); HEMOGLOBIN 14.4 g/dl (12.0-16.0); LYMPH # 2.8 10*3/uL (1.3-4.4); LYMPH % 24.5 % (27.0-41.0); MEAN CORPUSCULAR HGB 30.8 pg (27.0-31.0); MEAN CORPUSCULAR HGB CONC 32.8 g/dl (33.0-37.0); MEAN PLATELET VOLUME 10.8 fl (9.6-12.3); MONO # 0.7 10*3/uL (0.1-1.0); MONO % 5.7 % (3.0-9.0); NEUT # 7.4 10*3/uL (2.3-7.9); NEUT % 64.9 % (47.0-73.0); PLATELET COUNT AUTOMATED 298 10*3/uL (130-400); RED BLOOD COUNT 4.67 10*6/uL (4.10-5.10); RED CELL DISTRI WIDTH 14.4 % (0-14.5); WHITE BLOOD COUNT 11.5 10*3/uL (4.8-10.8)
[2018-08-31 16:10] LABS: URINE CREATININE RANDOM 33.5 mg/dL
[2018-08-31 16:13] LABS: BACTERIA 1+; HYALINE CAST 0-2; WBC 0-2 wbc/hpf (0-5)
[2018-08-31 16:31] LABS: ALBUMIN 3.4 gm/dl (3.1-4.5); CREATININE 1.65 mg/dL (0.55-1.02); PHOSPHOROUS 2.7 mg/dL (2.5-4.9)
[2018-08-31 16:54] LABS: PTH INTACT 55.7 pg/mL (18.5-88.0); VITAMIN D, 25-HYDROXY 49.4 ng/mL (30-100)
== END | disposition home or self-care (01) ==
LOC: LAB 15:27
PROVIDERS: Internal Medicine Nephrology
DX: E55.9 Vitamin D deficiency, unspecified (principal); N18.3 Chronic kidney disease, stage 3 (moderate); N25.81 Secondary hyperparathyroidism of renal origin; Z79.899 Other long term (current) drug therapy

== ENCOUNTER → 2019-01-30 | Outpatient (CLI) | payer MEDICARE, OTHER ==
[2019-01-30 14:59] LABS: BILIRUBIN NEGATIVE (NEGATIVE); BLOOD NEGATIVE (NEGATIVE); CLARITY CLEAR (CLEAR); COLOR YELLOW (YELLOW); GLUCOSE NEGATIVE (NEGATIVE); KETONE NEGATIVE (NEGATIVE); LEUKO ESTERASE NEGATIVE (NEGATIVE); NITRITE NEGATIVE (NEGATIVE); PH 5.5 (5.0-9.0); UROBILINOGEN 0.2 E.U./dl (0.2-1.0)
[2019-01-30 15:01] LABS: BASO # 0.1 10*3/uL (0.0-0.1); BASO % 0.6 % (0.0-1.0); EOS # 0.2 10*3/uL (0.0-0.4); EOS % 2.1 % (1.0-4.0); HEMATOCRIT 39.9 % (37.0-47.0); HEMOGLOBIN 12.9 g/dl (12.0-16.0); LYMPH # 2.2 10*3/uL (1.3-4.4); LYMPH % 19.6 % (27.0-41.0); MEAN CELL VOLUME 96.1 fl (81.0-99.0); MEAN CORPUSCULAR HGB 31.1 pg (27.0-31.0); MEAN CORPUSCULAR HGB CONC 32.3 g/dl (33.0-37.0); MEAN PLATELET VOLUME 10.9 fl (9.6-12.3); MONO # 0.8 10*3/uL (0.1-1.0); MONO % 6.7 % (3.0-9.0); NEUT # 7.9 10*3/uL (2.3-7.9); NEUT % 70.7 % (47.0-73.0); PLATELET COUNT AUTOMATED 272 10*3/uL (130-400); RED BLOOD COUNT 4.15 10*6/uL (4.10-5.10); RETICULOCYTE % 2.47 % (0.50-2.50); WHITE BLOOD COUNT 11.2 10*3/uL (4.8-10.8)
[2019-01-30 15:09] LABS: WBC 0-2 wbc/hpf (0-5)
[2019-01-30 15:30] LABS: ALBUMIN 3.3 gm/dl (3.1-4.5); CREATININE 1.61 mg/dL (0.55-1.02); POTASSIUM 4.3 mmol/L (3.5-5.1); TOTAL PROTEIN 7.3 gm/dL (6.4-8.2)
[2019-01-30 15:37] LABS: THYROID STIM HORMONE (HS) 1.69 uIU/ml (0.358-4.75)
[2019-01-30 15:38] LABS: FERRITIN 138.5 ng/mL (10.0-291.0); VITAMIN D, 25-HYDROXY 39.3 ng/mL (30-100)
== END | disposition home or self-care (01) ==
LOC: LAB 14:19
PROVIDERS: Family Medicine
DX: E78.5 Hyperlipidemia, unspecified (principal); E55.9 Vitamin D deficiency, unspecified; R79.89 Other specified abnormal findings of blood chemistry; R53.83 Other fatigue

== ENCOUNTER → 2019-09-02 | Outpatient (CLI) | payer MEDICARE, OTHER ==
[2019-09-02 14:40] LABS: BASO # 0.1 10*3/uL (0.0-0.1); BASO % 0.9 % (0.0-1.0); EOS # 0.3 10*3/uL (0.0-0.4); EOS % 2.2 % (1.0-4.0); HEMATOCRIT 41.8 % (37.0-47.0); HEMOGLOBIN 12.8 g/dl (12.0-16.0); LYMPH # 2.1 10*3/uL (1.3-4.4); LYMPH % 18.4 % (27.0-41.0); MEAN CELL VOLUME 96.8 fl (81.0-99.0); MEAN CORPUSCULAR HGB 29.6 pg (27.0-31.0); MEAN CORPUSCULAR HGB CONC 30.6 g/dl (33.0-37.0); MONO # 0.9 10*3/uL (0.1-1.0); MONO % 7.8 % (3.0-9.0); NEUT # 8.2 10*3/uL (2.3-7.9); NEUT % 70.5 % (47.0-73.0); PLATELET COUNT AUTOMATED 291 10*3/uL (130-400); RED BLOOD COUNT 4.32 10*6/uL (4.10-5.10); RETICULOCYTE % 3.08 % (0.50-2.50); WHITE BLOOD COUNT 11.6 10*3/uL (4.8-10.8)
[2019-09-02 14:48] LABS: URINE CREATININE RANDOM 35.5 mg/dL
[2019-09-02 14:49] LABS: BILIRUBIN NEGATIVE (NEGATIVE); BLOOD TRACE-LYSED (NEGATIVE); CLARITY CLEAR (CLEAR); COLOR YELLOW (YELLOW); GLUCOSE NEGATIVE (NEGATIVE); KETONE NEGATIVE (NEGATIVE); PH 6.5 (5.0-9.0)
[2019-09-02 14:50] LABS: LEUKO ESTERASE NEGATIVE (NEGATIVE); NITRITE NEGATIVE (NEGATIVE); UROBILINOGEN 0.2 E.U./dl (0.2-1.0)
[2019-09-02 14:51] LABS: BACTERIA TRACE
[2019-09-02 15:06] LABS: ALBUMIN 3.4 gm/dl (3.1-4.5); CREATININE 1.83 mg/dL (0.55-1.02); PHOSPHOROUS 2.9 mg/dL (2.5-4.9); POTASSIUM 4.5 mmol/L (3.5-5.1)
[2019-09-02 15:13] LABS: ALBUMIN 3.3 gm/dl (3.1-4.5); CREATININE 1.79 mg/dL (0.55-1.02); POTASSIUM 4.6 mmol/L (3.5-5.1); TOTAL PROTEIN 7.3 gm/dL (6.4-8.2)
[2019-09-02 15:18] LABS: FERRITIN 130.9 ng/mL (10.0-291.0); PTH INTACT 66.4 pg/mL (18.5-88.0); VITAMIN D, 25-HYDROXY 47.5 ng/mL (30-100)
[2019-09-02 15:19] LABS: THYROID STIM HORMONE (HS) 1.76 uIU/ml (0.358-4.75)
== END | disposition home or self-care (01) ==
LOC: LAB 13:43
PROVIDERS: Family Medicine; Internal Medicine Nephrology
DX: N25.81 Secondary hyperparathyroidism of renal origin (principal); N18.3 Chronic kidney disease, stage 3 (moderate); E55.9 Vitamin D deficiency, unspecified; R79.89 Other specified abnormal findings of blood chemistry; R53.83 Other fatigue

== ENCOUNTER → 2019-09-18 | Outpatient (CLI) | payer MEDICARE, OTHER | END | disposition home or self-care (01) | LOC: US 12:37 | DX: I65.23 Occlusion and stenosis of bilateral carotid arteries (principal) ==

== ENCOUNTER → 2020-01-24 | Outpatient (CLI) | payer MEDICARE | END | disposition home or self-care (01) | LOC: CP 09:33 | DX: J43.9 Emphysema, unspecified (principal) ==

== ENCOUNTER → 2020-12-22 | Outpatient (CLI) | payer MEDICARE | END | disposition home or self-care (01) | LOC: US 14:21 | PROVIDERS: ATTEND Surgery Vascular Surgery | DX: I65.23 Occlusion and stenosis of bilateral carotid arteries (principal) ==

== ENCOUNTER → 2021-03-22 | Outpatient (CLI) | payer MEDICARE ==
[~2021-03-22] MED LIST changes: +CLONIDINE0.2 MG PO; +VITAMIN D3125 MC1 PO; -VITAMIN D34000 UNIT PO
== END | disposition home or self-care (01) ==
LOC: CARD 03-18 14:00
PROVIDERS: ATTEND Internal Medicine Cardiovascular Disease
DX: I05.9 Rheumatic mitral valve disease, unspecified (principal)

== ENCOUNTER → 2021-04-06 | Outpatient (CLI) | payer MEDICARE | END | disposition home or self-care (01) | LOC: CARD 03-16 07:30 | PROVIDERS: ATTEND Internal Medicine Cardiovascular Disease | DX: I25.89 Other forms of chronic ischemic heart disease (principal) ==

== ENCOUNTER → 2021-04-15 | Outpatient (CLI) | payer MEDICARE | END | disposition home or self-care (01) | LOC: COVID19 15:57 | PROVIDERS: ATTEND Internal Medicine | DX: Z11.52 Encounter for screening for COVID-19 (principal) ==

== ENCOUNTER 2021-07-23 15:41 | Inpatient (IN) | payer OTHER ==
[~2021-07-23] VITALS: Ht 160 cm; Wt 118.8 kg
[2021-07-23 16:49] VITALS: BP 124/68
[2021-07-24] VITALS: BP 116/45
== END 2021-07-24 05:02 | DRG 871 ==
LOC: ICCU 15:41 → 5E 15:41
PROVIDERS: ADMIT Internal Medicine; ATTEND Internal Medicine
PROC: 5A0935A Assistance with Respiratory Ventilation, Less than 24 Consecutive Hours, High Flow/Velocity Cannula (ICD-10-PCS; principal; 2021-07-23)
DX: A41.9 Sepsis, unspecified organism (principal); J96.01 Acute respiratory failure with hypoxia; N17.0 Acute kidney failure with tubular necrosis; I21.4 Non-ST elevation (NSTEMI) myocardial infarction; J18.9 Pneumonia, unspecified organism; J96.02 Acute respiratory failure with hypercapnia; J44.1 Chronic obstructive pulmonary disease with (acute) exacerbation; J44.0 Chronic obstructive pulmonary disease with (acute) lower respiratory infection; Z66 Do not resuscitate; Z51.5 Encounter for palliative care; I50.9 Heart failure, unspecified